=== PATIENT | male | born 1945 | race Two or more races ===

== ENCOUNTER 2019-10-25 05:30 | Inpatient (IN) | payer OTHER ==
[~2019-10-25] VITALS: Ht 170.2 cm; Wt 97.5 kg
[~2019-10-25 05:30] MED LIST: AVAPRO150 MG PO; CLONAZEPAM2 M1 PO; FINESTERIDE PO; GLYCOTROL CAPS1 EACH PO; HYTRIN PO; LIPITOR20 MG PO
[2019-10-25] MEDS ORDERED: VITAMIN B-121000 MC4 PO (08:41)
[2019-10-25] MEDS ORDERED: FINASTERIDE5 MG PO (08:43)
[2019-10-25] MEDS ORDERED: TERAZOSIN HCL5 MG PO (08:44)
[2019-10-25] MEDS ORDERED: ATORVASTATIN CA40 MG PO (08:45)
== END 2019-10-27 08:32 | disposition home or self-care (01) | DRG 708 ==
LOC: SURG 05:30 → O/R 05:30 → SURH 07:42 → SURG 11:36
PROVIDERS: ADMIT Urology
PROC: 0TCB0ZZ Extirpation of Matter from Bladder, Open Approach (ICD-10-PCS; 2019-10-25)
PROC: 0VT00ZZ Resection of Prostate, Open Approach (ICD-10-PCS; principal; 2019-10-25 08:00)
DX: N40.1 Benign prostatic hyperplasia with lower urinary tract symptoms (principal); R33.8 Other retention of urine; N21.0 Calculus in bladder; N41.1 Chronic prostatitis